=== PATIENT | female | born 1955 | race Caucasian/White ===

== ENCOUNTER 2017-03-26 05:18 | Inpatient (IN) | payer OTHER, SELFPAY ==
[~2017-03-26 05:18] MED LIST: GLIPIZIDE ER10 M1 PO; GLUCOPHAGE500 MG PO; LISINOPRIL10 MG PO; NORCO 5/325 TAB1 TAB PO; OXYCODONE/APAP PO; PAXIL40 MG PO; TOPROL XL50 MG PO
[2017-03-26] MEDS ORDERED: NO HOME MEDICATION XX (05:50)
[2017-03-26 06:09] LABS: ALB/GLOB RATIO 1.1 (0.8-2.0); ALBUMIN 4.6 g/dl (3.5-5.0); ALKALINE PHOSPHATASE 135 U/L (33-138); ALT/SGPT 35 U/L (12-78); BILIRUBIN,TOTAL 1.3 mg/dl (0-1.5); BLOOD UREA NITROGEN 14 mg/dl (6-24); CALCIUM 9.3 mg/dl (8.5-10.5); CARBON DIOXIDE-VENOUS 23 mmol/L (22-32); CHLORIDE 97 mmol/l (96-110); CREATININE 1.01 mg/dl (0.50-1.10); GLUCOSE 287 mg/dL (70-110); SODIUM 134 mmol/L (135-145); eGFR VALUE FOR BLACK 68 mL/Min
[2017-03-26 06:11] LABS: ANION GAP 18 mmol/L (0-20); AST/SGOT 42 U/L (10-40); POTASSIUM 3.6 mmol/L (3.7-5.1)
[2017-03-26 06:12] LABS: BASO % 0.4 % (0-2); BASO ABSOLUTE COUNT 0.1 tho/cmm (0.0-0.2); EOS % 2.2 % (0-7); EOSINOPHIL ABSOLUTE COUNT 0.3 tho/cmm (0.0-0.7); HCT-HEMATOCRIT 49.3 % (34.0-49.0); HGB-HEMOGLOBIN 17.8 gm/dl (12.0-15.5); LYMPH % 27.3 % (20-45); LYMPH ABSOLUTE COUNT 3.3 tho/cmm (0.8-4.5); MCH (MEAN CORPUSCULAR HGB) 31.1 pg (28.0-32.0); MCHC MEAN CORPUSCULAR HGB CONC 36.1 % (32.0-36.0); MCV (MEAN CELL VOLUME) 86.2 fl (82.0-96.0); MEAN PLATELET VOLUME 9.9 cmc (9.4-12.4); MONO % 8.9 % (0-12); MONOCYTE ABSOLUTE COUNT 1.1 tho/cmm (0.0-1.2); NEUTROPHIL ABSOLUTE COUNT 7.3 tho/cmm (1.6-8.0); NEUTROPHIL-AUTOMATED 7.3 tho/cmm (1.6-8.0); NEUTROPHILS % 61.2 % (40-80); PLATELET COUNT 310 tho/cmm (150-450); RED BLOOD COUNT 5.72 mil/cmm (4.00-5.20); RED CELL DISTRIBUTION WIDTH 12.8 % (12.4-16.4)
[2017-03-26 06:50] LABS: MAGNESIUM 1.9 mg/dl (1.8-2.6)
[2017-03-26 06:52] LABS: TSH-THYROID STIMULATING HORM. 2.93 uIU/ml (0.40-3.80)
[2017-03-27 05:24] LABS: ANION GAP 10 mmol/L (0-20); BLOOD UREA NITROGEN 11 mg/dl (6-24); CALCIUM 7.9 mg/dl (8.5-10.5); CARBON DIOXIDE-VENOUS 28 mmol/L (22-32); CHLORIDE 104 mmol/l (96-110); CHOLESTEROL 151 mg/dl (120-200); CREATININE 0.69 mg/dl (0.50-1.10); GLUCOSE 204 mg/dL (70-110); HDL CHOLESTEROL 31 mg/dl (40-60); LDL CHOLESTEROL 44 mg/dl (0-99); SODIUM 138 mmol/L (135-145); VLDL 76 mg/dl (0-30); eGFR VALUE FOR BLACK >90 mL/Min
[2017-03-27 05:30] LABS: TRIGLYCERIDES 380 mg/dl (<149)
[2017-03-28] MEDS ORDERED: BRILINTA90 M1 PO (14:28)
[2017-03-28] MEDS ORDERED: LIPITOR40 M1 PO (14:29)
[2017-03-28] MEDS ORDERED: ZESTRIL10 M3 PO (14:29)
[2017-03-28] MEDS ORDERED: INVOKANA100 MG PO (14:32)
[2017-03-28] MEDS ORDERED: TOPROL XL100 M1 PO (14:32)
[2017-03-28] MEDS ORDERED: ASPIRIN81 M1 PO (14:32)
== END 2017-03-28 16:00 | DRG 247 ==
LOC: EDMED 05:18 → EMR2 06:10 → CCU 07:47 → 5WD 03-27 23:25
PROVIDERS: Emergency Medicine; ADMIT Internal Medicine
PROC: 027034Z Dilation of Coronary Artery, One Artery with Drug-eluting Intraluminal Device, Percutaneous Approach (ICD-10-PCS; principal; 2017-03-26)
PROC: 02C03ZZ Extirpation of Matter from Coronary Artery, One Artery, Percutaneous Approach (ICD-10-PCS; 2017-03-26)
PROC: 4A023N7 Measurement of Cardiac Sampling and Pressure, Left Heart, Percutaneous Approach (ICD-10-PCS; 2017-03-26)
PROC: B2111ZZ Fluoroscopy of Multiple Coronary Arteries using Low Osmolar Contrast (ICD-10-PCS; 2017-03-26)
DX: I21.09 ST elevation (STEMI) myocardial infarction involving other coronary artery of anterior wall (principal); I42.9 Cardiomyopathy, unspecified; I10 Essential (primary) hypertension; I25.10 Atherosclerotic heart disease of native coronary artery without angina pectoris; E11.9 Type 2 diabetes mellitus without complications
CPT/HCPCS: C1725; C1757; C1769; C1874; C1887; C1894; C8924; C9606-LD; G0009; J0153; J1327; J1644; J1815; J2250; J2270; J2405; J3010; J7030; Q9967